=== PATIENT | male | born 1965 | race American Indian/Alaskan Native ===

== ENCOUNTER 2020-06-28 00:36 | Emergency (ER) | payer SELFPAY ==
--- NOTE | 2020-06-28 01:15 | Emergency Department Report ---
ED General Adult HPI - General Chief complaint: Upper Respiratory Infection Stated complaint: COVID POSITIVE/EXCESSIVE COUGHING Time Seen by Provider: 06/28/20 01:01 Source: patient Mode of arrival: Ambulatory Limitations: No Limitations - History of Present Illness Initial comments: Patient is 54-year-old male with history of hypertension diabetes. Patient stated that he was recently diagnosed with COVID-19 2 weeks ago however he tested negative last week. Patient presented to the ER complaining of shortness of breath and excessive cough for the last few days. Patient denied any fever or chills. Patient also denied any chest pain, nausea, vomiting or diarrhea. - Related Data Allergies Allergy/AdvReac Type Severity Reaction Status Date / Time No Known Allergies Allergy Verified 06/28/20 02:30 ED Review of Systems ROS: Stated complaint: COVID POSITIVE/EXCESSIVE COUGHING Other details as noted in HPI Comment: All other systems reviewed and negative Constitutional: denies: chills, fever Respiratory: cough, shortness of breath, SOB with exertion, SOB at rest Cardiovascular: denies: chest pain, palpitations Gastrointestinal: denies: abdominal pain, nausea, vomiting Musculoskeletal: denies: back pain Neurological: denies: headache, weakness, numbness, paresthesias, confusion ED Past Medical Hx - Past Medical History Hx Hypertension: Yes Hx Diabetes: Yes Additional medical history: Covid+ early june - Social History Smoking Status: Former Smoker ED Physical Exam - General Limitations: No Limitations General appearance: alert, in no apparent distress - Head Head exam: Present: atraumatic, normocephalic, normal inspection - Eye Eye exam: Present: normal appearance, PERRL - ENT ENT exam: Present: normal exam, normal orophraynx, mucous membranes moist - Neck Neck exam: Present: normal inspection, full ROM. Absent: tenderness, meningismus - Respiratory Respiratory exam: Present: normal lung sounds bilaterally - Cardiovascular Cardiovascular Exam: Present: tachycardia - GI/Abdominal GI/Abdominal exam: Present: soft, normal bowel sounds. Absent: distended, tenderness, guarding, rebound, rigid, organomegaly, mass, bruit, pulsatile mass, hernia - Extremities Exam Extremities exam: Present: normal inspection, full ROM, normal capillary refill. Absent: tenderness - Back Exam Back exam: Present: normal inspection, full ROM. Absent: CVA tenderness (R), CVA tenderness (L) - Neurological Exam Neurological exam: Present: alert, oriented X3, CN II-XII intact, normal gait, reflexes normal - Psychiatric Psychiatric exam: Present: normal mood - Skin Skin exam: Present: warm, intact, normal color ED Course Vital Signs 06/28/20 06/28/20 06/28/20 00:43 01:17 01:31 Temperature 98.1 F Pulse Rate 119 H 108 H 109 H Respiratory 20 34 H 28 H Rate Blood Pressure 190/123 173/108 173/108 O2 Sat by Pulse 99 97 Oximetry 06/28/20 06/28/20 02:01 02:31 Temperature Pulse Rate 108 H 105 H Respiratory 17 29 H Rate Blood Pressure 149/98 141/98 O2 Sat by Pulse 98 97 Oximetry ED Medical Decision Making - Lab Data Result diagrams: 06/28/20 01:31 06/28/20 01:31 - EKG Data -: EKG Interpreted by Ct EKG shows normal: sinus rhythm Rate: tachycardia - EKG Data Interpretation: no acute changes - Radiology Data Radiology results: report reviewed - Medical Decision Making Patient is 54-year-old male with history of hypertension diabetes. Patient stated that he was recently diagnosed with COVID-19 2 weeks ago however he tested negative last week. Patient presented to the ER complaining of shortness of breath and excessive cough for the last few days. Patient denied any fever or chills. Patient also denied any chest pain, nausea, vomiting or diarrhea. Chest x-ray is unremarkable. Labs showed blood glucose of 401 and lactic acid slightly elevated at 2.4. Patient received normal saline and insulin. Patient given Rocephin for UTI. Patient also given prescription for ciprofloxacin and Robitussin-AC for cough and advised to follow-up with his primary doctor in the next 2 to 3 days and to return to the ER if he develop any new symptoms. Critical care attestation.: If time is entered above; I have spent that time in minutes in the direct care of this critically ill patient, excluding procedure time. ED Disposition Clinical Impression: Shortness of breath, Acute hyperglycemia, Lactic acidosis, UTI (urinary tract infection) Disposition: - TO HOME OR SELFCARE Is pt being admited?: No Condition: Stable Instructions: Cough, Adult, [id number], Shortness of Breath, Adult, [id number], Urinary Tract Infection, Adult Referrals: PRIMARY CARE, [Primary Care Provider] - 3-5 Days Forms: Work/School Release Form(ED)
--- NOTE | 2020-06-28 01:46 | XRay Report ---
. XR chest 1V ap INDICATION / CLINICAL INFORMATION: Dyspnea COMPARISON: None available. FINDINGS: SUPPORT DEVICES: None. HEART / MEDIASTINUM: No significant abnormality. LUNGS / PLEURA: Lungs are clear. Costophrenic sulci are sharp. No pneumothorax. ADDITIONAL FINDINGS: No significant additional findings. IMPRESSION: 1. No acute findings. Signer Name: Catalino Galindo MD Signed: 06/28/2020 1:41 AM Workstation Name: [id number]
[2020-06-28 02:02] LABS: Bacteria,Urine 1+ /HPF (Negative); Bilirubin,Urine NEG (Negative); Blood,Urine NEG (Negative); Color,Urine Yellow (Yellow); Mucus,Urine FEW /HPF; Urobilinogen,Urine < 2.0 mg/dL (<2.0)
[2020-06-28 02:17] LABS: Basophils # (Auto) 0.1 K/mm3 (0.0-0.1); Basophils % (Auto) 1.1 % (0.0-1.8); Eosinophils % (Auto) 0.6 % (0.0-4.3); Hematocrit 45.1 % (35.5-45.6); Hemoglobin 15.4 gm/dl (11.8-15.2); Lymphocytes # (Auto) 1.9 K/mm3 (1.2-5.4); Lymphocytes % (Auto) 26.6 % (13.4-35.0); Mean Corpuscular HGB Conc 34 % (32-34); Mean Corpuscular Volume 88 fl (84-94); Monocytes # (Auto) 0.4 K/mm3 (0.0-0.8); Platelet Count 85 K/mm3 (140-440); Red Blood Count 5.12 M/mm3 (3.65-5.03); Red Cell Distribution Width 14.8 % (13.2-15.2)
[2020-06-28 02:26] LABS: Calcium 9.6 mg/dL (8.4-10.2)
[2020-06-28] MEDS ORDERED: SODIUM CHLORIDE 0.9% 500 ML 500 ML ONE (02:27)
[2020-06-28 02:29] LABS: Alanine Aminotransferase 48 units/L (7-56); Albumin 4.5 g/dL (3.9-5)
[2020-06-28 02:30] LABS: Bilirubin,Direct < 0.2 mg/dL (0-0.2)
[2020-06-28] MEDS ORDERED: SODIUM CHLORIDE 0.9% 500 ML 500 ML IV ONE (02:33)
[2020-06-28 02:34] LABS: INR 0.96 (0.87-1.13)
[2020-06-28 02:35] LABS: Partial Thromboplastin Time 30.6 Sec. (24.2-36.6)
[2020-06-28] MEDS ORDERED: INSULIN REGULAR, HUMAN 100 UNITS/1 ML IV ONE (02:37)
[2020-06-28] MEDS ORDERED: cefTRIAXone/NS 1 GM/50 ML 1 GM/50 ML BAG IV ONE (02:37)
[2020-06-28 03:32] VITALS: BP 173/113
--- NOTE | 2020-06-28 08:37 | Electrocardiograph Report ---
[facility] Test Date: 2020-06-28 Test Time: 01:24:56 Pat Name: LALITO COSTELLO Department: Room: Gender: M [employer]: : [id number] Requested By: DARLINE HUNT Order Number: [id number] Reading MD: Aj Burch Measurements Intervals [place] Rate: 109 P: 55 CT: 144 QRS: 63 QRSD: 77 T: 2 QT: 323 QTc: 435 Interpretive Statements Sinus tachycardia Probable left atrial enlargement No previous ECG available for comparison Electronically Signed On 06-29-2020 6:44:48 PDT by Aj Burch
== END 2020-06-28 03:39 | disposition home or self-care (01) ==
LOC: ED 00:36
DX: R06.02 Shortness of breath (principal); E11.65 Type 2 diabetes mellitus with hyperglycemia; E87.2 Acidosis; N39.0 Urinary tract infection, site not specified; I10 Essential (primary) hypertension; Z87.891 Personal history of nicotine dependence; Z79.899 Other long term (current) drug therapy
CPT/HCPCS: 36415; 71045; 80048; 80076; 81001; 82140; 82962; 83880; 84484; 85025; 85610; 85730; 87040; 87086; 93005; 96365; 96375; 99284; J0696; J7040; J1815

== ENCOUNTER 2021-07-23 18:47 | Emergency (ER) | payer SELFPAY ==
[2021-07-23] MEDS ORDERED: traMADol 50 MG TAB PO ONE (22:11)
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
[2021-07-23 23:07] VITALS: BP 177/108
== END 2021-07-23 22:35 | disposition home or self-care (01) ==
LOC: ED 18:47
DX: S01.81XA Laceration without foreign body of other part of head, initial encounter (principal); I10 Essential (primary) hypertension; E11.9 Type 2 diabetes mellitus without complications; Z87.891 Personal history of nicotine dependence; V29.9XXA Motorcycle rider (driver) (passenger) injured in unspecified traffic accident, initial encounter; Y93.89 Activity, other specified; Y92.89 Other specified places as the place of occurrence of the external cause; Y99.8 Other external cause status
CPT/HCPCS: 99282